=== PATIENT | female | born 1985 | race Caucasian/White ===

== ENCOUNTER 2020-04-26 09:09 | Emergency (ER) | payer OTHER, SELFPAY ==
[2019-04-25 08:34] VITALS: BMI 25.9
[2020-04-26 09:10] VITALS: BP 145/73; PULSE 89; RESP 16; TEMP 36.9; O2SAT 98; BMI 28.3
--- NOTE | 2020-04-26 09:22 | EKG12_ITS ---
Test Reason : CHEST PAIN Blood Pressure : / mmHG Vent. Rate : 076 BPM Atrial Rate : 076 BPM P-R Int : 162 ms QRS Dur : 076 ms QT Int : 352 ms P-R-T Axes : 014 045 046 degrees QTc Int : 396 ms Normal sinus rhythm Normal ECG Confirmed by ELHAM WELLS, HERIBERTO ([id number]), art editor MARILYN ROME ([id number]) on 05/02/2020 12:44:26 PM Referred By: DAT Confirmed By:HERIBERTO LIZARRAGA MD
--- NOTE | 2020-04-26 09:22 | RAD_ITS ---
STUDY: X-RAY CHEST REASON FOR EXAM: Female, 34 years old. Anterior chest pain since 04-21-20 after putting a cabinet together TECHNIQUE: PA and lateral views of the chest. COMPARISON: None. FINDINGS: The lungs are clear and expanded. There is no demonstrated pleural abnormality. Normal size heart. Normal mediastinum and lopez. Normal visualized pulmonary arteries. Normal visualized aortic arch and descending thoracic aorta. Normal visualized thoracic spine. Normal visualized ribs, clavicles, and shoulders. There is no demonstrated abnormality of the visualized soft tissue structures of the upper abdomen. RAD/Chest PA and Lateral IMPRESSION: Normal x-ray examination of the chest. Electronically Signed: Den Stanley MD at 9:52 EST , Service support ,
--- NOTE | 2020-04-26 09:30 | ED.DCSUM_ITS ---
History of Present Illness Chief Complaint: Chest Other Informant: Patient Onset: Days Context: Gradual Onset Timing: Intermittent Current Severity: Moderate Maximum Severity: Moderate Narrative: Patient is an otherwise healthy 34-year-old female who presents to the emergency department with midsternal chest pain. She states it began on . She states that she was bent over and putting together a table. She states that she has had the pain intermittently since then. She states is worse if she pushes on the area, bends, or twists. It does not radiate to her neck or arm. It is not made worse with exertion. She denies cough or shortness of breath. She denies any nausea or vomiting. She states that she is taken ibuprofen which has seemed to help. She has no history of coronary vascular disease. Prior similar symptoms: No Recent Illness/Hospitalization: No Past Medical History - Allergies and Home Meds Allergies/Adverse Reactions: Allergies No Known Allergies Allergy (Verified 04/25/19 08:32) Primary Care Physician: Yobani Morse III, MD [Primary Care Provider] - Prior records reviewed: Yes Past Medical History: None Surgical History: noncontributory Smoking Status: Former smoker Review of Systems General: Denies: Chills, Fever, Sweats Eyes: Denies: Visual changes - bilaterally, Diplopia ENT: Denies: Rhinorrhea, Sore throat Cardiovascular: Reports: Chest pain. Denies: Palpitations Respiratory: Denies: Dyspnea, Cough, Dyspnea on exertion Gastrointestinal: Denies: Abdominal pain, Nausea, Vomiting, Diarrhea, Melena, Hematochezia Genitourinary: Denies: Dysuria, Hematuria, Frequency Musculoskeletal: Denies: Back pain, Extremity Pain Skin: Denies: Rash, Wounds Neurological: Denies: Headache, Weakness, Numbness Physical Exam Vital Signs/Narrative: Vital Signs Temp Pulse Resp BP Pulse Ox 04/26/20 09:10 98.4 F 89 16 145/73 H 98 Inital Vital Signs reviewed: Yes General: Well nourished, Well developed, No Acute Distress Head: Normocephalic, Atraumatic Eyes: Perrl, EOMI ENT: Moist mucous membranes, No rhinorrhea Neck: Supple, Nontender Cardiovascular: Regular rate, Regular rhythm, No murmurs Respiratory: No distress, CTA bilaterally, Chest tenderness Abdomen: Soft, Nontender, Nondistended, Normal bowel sounds Back: Nontender, Normal Inspection Extremities: Nontender, No edema Skin: Normal color, No rash Neurological: Alert, Oriented x3, Cranial nerves II-XII grossly intact, Normal Strength, Normal Sensation Psychological: Normal affect, Normal Mood Diagnostic/Tx/Re-eval Chest X-Ray - ED: 2 View, Read by ED Physician, Normal, Heart, Lungs, Mediastin um, Bony Structures Clinical Impression(s) from Imaging Studies Chest X-Ray 04/26/20 09:22 IMPRESSION: Normal x-ray examination of the chest. Electronically Signed: Den Stanley MD at 9:52 EST , Service support , - Rhythm Strip Rhythm Strip: Sinus Rhythm Rate: 80 Ectopy: None - EKG Initial EKG Interpretation: Sinus Rhythm, No Acute Injury Pattern Prior: No Prior - Medical Decision Making The patient presents with reproducible anterior chest pain. It is worse with motion. She has no exertional symptoms. She is not hypoxic, tachypneic, or tachycardic. EKG was obtained. Was sinus rhythm without evidence of acute ischemia. Chest x-ray was also obtained. There is no cardiomegaly, infiltrate, or effusion. My suspicion is that this is muscular. I am going to treat the patient with anti-inflammatories. She will be discharged home. Impression 1. Chest wall pain ED Disposition - Plan for ED Patient: Instructions: ED Chest Wall Pain, Costochondritis Prescriptions: Naproxen [Naprosyn] 500 mg PO BID PRN #20 tab Prescription Printed Referrals: Yobani Morse III, MD [Primary Care Provider] -
== END 2020-04-26 10:08 | disposition home or self-care (01) ==
LOC: ED 10:01
PROVIDERS: Emergency Provider Emergency Medicine; PCP Family Medicine
DX: R07.89 Other chest pain (principal); Z87.891 Personal history of nicotine dependence
CPT/HCPCS: 71046; 93005; 99282

== ENCOUNTER → 2022-08-28 | Outpatient (CLI) | payer OTHER, SELFPAY ==
--- NOTE | 2022-08-28 07:20 | BI_ITS ---
MAMMOGRAPHY - BILATERAL SCREENING REASON FOR EXAM: Female, 36 years old. Routine annual screening examination. PERTINENT HISTORY: Non-contributory. TECHNIQUE: Digital bilateral breast josh (3D mammographic acquisition) in the CC and MLO projections. 2-D mediolateral oblique (MLO) and craniocaudad (CC) views of both breasts were obtained. CAD: Full Field Digital Mammography with Computer Added Detection was performed. COMPARISON: None. Baseline examination. FINDINGS: Breast Composition: Portions of the breasts are extremely dense, which lowers the sensitivity of mammography. Finding 1: There is an asymmetry in the right central breast, middle depth, approximately 7 cm posterior to the nipple and seen only on CC and 3-D CC views. Further assessment with spot compression and ultrasound as needed is recommended. Finding 2: There is an asymmetry in the right outer breast, middle depth, approximately 7 cm posterior to the nipple and seen only on CC and 3-D cc views. Further assessment with spot compression and ultrasound as needed is recommended. Findings 3: There is an asymmetry in the left slightly upper breast, anterior depth, approximately 2.0 cm posterior to the nipple and seen only on MLO and 3-D MLO views. Further assessment with spot compression and ultrasound as needed is recommended. No suspicious calcifications. No other significant finding. BI/SCRN MAMM (CAD)W/JOSH BILAT IMPRESSION: Further imaging evaluation recommended, as described above. (E) Recall Side: Both Breasts ASSESSMENT CATEGORY: BIRADS Category 0: Incomplete. Need additional imaging evaluation. A letter regarding these results will be sent to the patient by the facility within 30 days. Approximately 10% of breast cancers are not detected by mammography. A normal mammogram should not delay biopsy of a clinically suspicious abnormality. Electronically Signed: Dragan George MD at 8:10 EDT ,
== END | disposition home or self-care (01) ==
LOC: OPBI 07:18
PROVIDERS: PCP Family Medicine; Referring Provider Nurse Practitioner Women's Health; Visit Provider Nurse Practitioner Women's Health
DX: Z12.31 Encounter for screening mammogram for malignant neoplasm of breast (principal)
CPT/HCPCS: 77063; 77067

== ENCOUNTER → 2022-09-05 | Outpatient (CLI) | payer OTHER, SELFPAY ==
--- NOTE | 2022-09-05 08:46 | BI_ITS ---
MAMMOGRAPHY - BILATERAL DIAGNOSTIC REASON FOR EXAM: Female, 36 years old. Abnormal screening mammogram. TECHNIQUE: Compression spot views of both breasts were obtained. CAD: Full Field Digital Mammography with Computer Added Detection was performed. COMPARISON: Comparison is made with prior examination August 28, 2022. FINDINGS: Breast Composition: The breasts are heterogeneously dense, which may obscure small masses. There are no dominant masses or suspicious calcifications. No other significant abnormalities are identified. BI/DIAG MAMM W/CAD BILMARCOS IMPRESSION: Negative diagnostic mammogram. Yearly followup mammogram recommended. (A) ASSESSMENT CATEGORY: BIRADS Category 1: Negative. A letter regarding these results will be sent to the patient by the facility within 30 days. Approximately 10% of breast cancers are not detected by mammography. A normal mammogram should not delay biopsy of a clinically suspicious abnormality. Electronically Signed: Den Stanley MD at 10:12 EDT ,
== END | disposition home or self-care (01) ==
PROVIDERS: PCP Family Medicine; Referring Provider Nurse Practitioner Women's Health; Visit Provider Nurse Practitioner Women's Health
DX: R92.8 Other abnormal and inconclusive findings on diagnostic imaging of breast (principal)
CPT/HCPCS: 77066

== ENCOUNTER 2022-10-29 17:00 | Outpatient (RCR) | payer OTHER, SELFPAY ==
--- NOTE | 2022-08-31 12:38 | HP.PTEVAL_ITS ---
Patient's Visit Information JASON LIAO is a 36 year old F referred to Physical Therapy by Renate Sierra DO with a diagnosis of Neck pain. Date of Evaluation: 08/30/22 Physical Therapist: Sincere Ng, PT, ATC - Visit Plan Frequency: 1x/Week Duration: 2-4 Weeks Plan: Trialed c Tx this date 14#/7# 30/10 x 10 min. Assess benefit of Tx next visit. Consider adding DTR and mobs next Rx - Subjective Pt reports she has had R shoulder pain for approximately 3 months. Pt notes she has slept on her stomach with her head rotated to the left for the past 38 years. Pt reports she believes this may be what's causing her pain. Pt denies any R UE tingling or numbness. Pt has had no diagnostic tests at this time. Pt reports she has been in a lot of pain over the past 3 months constantly. Pt denies any prior Hx of neck injuries. 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 Pt reports she is not limited with her ADL's or IADL's at this time. Pt reports even though she is in pain, she always works through the pain. Pt reports she has a very hard time sleeping at night secondary to her pain. 1/10 pain at rest, 5/10 pain at worst - Pain neck pain Pain Intensity (Out of 10): 1 Pain Intensity Range: 5 - Objective Neuro: B UE sensation is WNL to light touch. B bicipital reflex= 2/3. Pal pation: Pt has sig muscle guarding throughout her cervical spine and upper trap regions. No obvious deformity. ROM: Pt is moderately limited with c/s retraction. All other ranges WNL. MMT: B UE's are grossly 5/5 throughout. Repeated movements: RPIS 10x3 NE. RRIS 10x3 NE. Special tests: Pos apley compression test - Balance/Special Test Scores Oswestry Neck Score: 6 - Goals Goal 1:: Decrease neck pain x 50% to aid with sleep Goal Time Frame: 2-4 Weeks Goal 2:: Increase c/s ROM to WNL in all planes to aid with driving Goal Time Frame: 2-4 Weeks Goal 3:: I with HEP Goal Time Frame: 2-4 Weeks - Rehabilitation Potential Physical Therapy Diagnosis: Pt has neck pain, limited ROM in c/s, and difficulty with sleep secondary to a postural derangement of c/s Rehabilitation Potential: Good - Anticipated Interventions Patient/Client Instruction: Educate patient on: Condition, Plan of Care For the Purpose of:: To improve self management Therapeutic Exercise to Include: Postural training, Scapular Strength/Stabilization For the Purpose of:: To decrease pain, To increase ROM, To improve muscle performance and motor function Thermo therapy (hot pack): Yes Intermittent cervical traction: Yes For the Purpose of:: To decrease pain, To increase ROM Thank you for the opportunity to evaluate your patient. For Medicare and Medicare HMO plans, please review the plan of care and approve it. It will need to be FAXED BACK to us at [phone] for Medicare purposes. For Medicare only, by signing this I certify the plan of care. Please let me know if there are questions or concerns regarding this plan of care. Physician Signature: Date:
--- NOTE | 2023-01-02 12:27 | HP.PT.NRP ---
Patient Information Patient Information: JASON LIAO was seen in my office for initial evaluation on 08/30/22. The following Plan of Care was established for this patient: POC Established Initial Frequency: 1x/Week Initial Duration: 2-4 Weeks Anticipated Interventions Patient/Client Instruction: Educate patient on: Condition and Plan of Care For the Purpose of:: To improve self management Therapeutic Exercise to Include: Postural training and Scapular Strength/Stabilization For the Purpose of:: To decrease pain, To increase ROM and To improve muscle performance and motor function Thermo therapy (hot pack): Yes Intermittent cervical traction: Yes For the Purpose of:: To decrease pain and To increase ROM Last Seen Last Seen: This patient was last seen in our office . Pertinent comments regarding their Physical therapy will appear below: Pt was treated for 3 PT visits for neck pain through the date of 10/29/22. Pt has not returned through todays date and is discontinued at this time. At this point I will be discontinuing this patient from physical therapy. I would be happy to see this patient again in the future if found appropriate by the physician. Thank you! Sincere Ng, PT, ATC Balance/Gait/Functional tests Balance/Special Test Scores Oswestry Neck Score: 6
== END 2022-10-29 19:00 | disposition home or self-care (01) ==
LOC: PT 17:00
PROVIDERS: PCP Family Medicine; Referring Provider Family Medicine; Visit Provider Family Medicine
DX: M54.2 Cervicalgia (principal)
CPT/HCPCS: 97012; 97140; 97161

== ENCOUNTER → 2022-11-21 | Outpatient (CLI) | payer OTHER, SELFPAY ==
[2022-11-21 17:57] LABS: Anion Gap 7 (5-15); BUN 14 mg/dL (7-18); BUN/Creat Ratio 21.3 RATIO (10-20); Calcium,Total 9.2 mg/dL (8.5-10.1); Chloride 107 mmol/L (98-107); Creatinine, Serum 0.66 mg/dL (0.55-1.02); EST Glomerular Filtration Rate 107 mL/min (>60); Est Glom Filt Rate - Afr Amer 129 mL/min (>60); Glucose 102 mg/dL (74-106); Potassium 4.3 mmol/L (3.5-5.1); Sodium Level 136 mmol/L (136-145); Thyroid Stim Hormone (TSH) < 0.01 uIU/mL (0.358-3.74)
== END | disposition home or self-care (01) ==
LOC: MFPLAB 15:23
PROVIDERS: Nurse Practitioner Family; PCP Family Medicine; Visit Provider Family Medicine
DX: E87.6 Hypokalemia (principal); F41.9 Anxiety disorder, unspecified
CPT/HCPCS: 36415; 80048; 84443

== ENCOUNTER → 2022-11-28 | Outpatient (CLI) | payer OTHER, SELFPAY ==
[2022-11-28 18:11] LABS: Free T3 9.9 pg/mL (2.18-3.98); T4 Free Direct 2.44 ng/dL (0.76-1.46)
[2022-12-12 13:07] LABS: Anti-Thyroglobulin AB 25.3 IU/mL (0.0-0.9); Thyroglobulin RIA 37 ng/mL (.)
== END | disposition home or self-care (01) ==
LOC: MTLAB 15:16
PROVIDERS: PCP Family Medicine; Referring Provider Nurse Practitioner Family; Visit Provider Nurse Practitioner Family
DX: E05.90 Thyrotoxicosis, unspecified without thyrotoxic crisis or storm (principal)
CPT/HCPCS: 84432; 84439; 84445; 84481; 86800

== ENCOUNTER 2022-12-21 18:28 | Emergency (ER) | payer OTHER, SELFPAY ==
[2022-12-21 18:28] VITALS: BP 140/76; PULSE 91; RESP 16; TEMP 35.6; O2SAT 99; BMI 23.2
[2022-12-21 18:49] LABS: Absolute Lymphocyte Count 0.99 X10^3/uL (0.83-4.51); Absolute Neutrophil Count 12.4 X10^3/uL (2.0-7.7); Basophil# 0.04 X10^3/uL; Basophil% 0.3 % (0-1); Hemoglobin 15.3 g/dL (12.0-15.0); Lymphocyte # 0.99 X10^3/ul (0.83-4.51); Lymphocyte % 7.2 % (19-41); Mean Corpuscular Hgb 28.1 pg (27.0-32.0); Mean Corpuscular Volume 82.7 fL (81-99); Mean Platelet Vol. 10.7 fl (6.2-12.0); Monocyte# 0.18 X10^3/uL; Monocyte% 1.3 % (0-10); NRBC Flagged by Analyzer 0 % (0-5); Neutrophil # 12.44 X10^3/uL (2.7-7.7); Neutrophil % 90.9 % (47-70); Platelet Count 278 K/mm3 (150-450); RBC Distribution Width CV 11.9 % (11.6-14.6); RBC Distribution Width SD 35.6 fl (35.1-43.9); Red Blood Count 5.44 M/mm3 (4.2-5.4); White Blood Count 13.7 K/mm3 (4.4-11.0)
[2022-12-21 19:04] LABS: AST(SGOT) 10 U/L (15-37); Alanine Aminotransfer ALT/SGPT 24 U/L (13-56); Albumin, Serum 4.1 g/dL (3.2-5.0); Alkaline Phosphatase 98 U/L (45-117); Anion Gap 8 (5-15); BUN 13 mg/dL (7-18); BUN/Creat Ratio 19.7 RATIO (10-20); Calcium,Total 9.6 mg/dL (8.5-10.1); Chloride 109 mmol/L (98-107); Creatinine, Serum 0.66 mg/dL (0.55-1.02); EST Glomerular Filtration Rate 106 mL/min (>60); Est Glom Filt Rate - Afr Amer 128 mL/min (>60); Estimated Creatinine Clearance 94.67 ml/min; Globulin 4.1 g/dL (2.2-4.2); Glucose 167 mg/dL (74-106); Potassium 4.3 mmol/L (3.5-5.1); Protein, Total 8.2 g/dL (6.4-8.2); Sodium Level 140 mmol/L (136-145)
[2022-12-21 20:30] LABS: Mucous, Urine 0 SEEN /hpf (<or=2+)
[2022-12-21 20:35] LABS: Color, Urine Yellow (Yellow); Glucose, Dipstick Normal (Normal); Leukocyte Esterase-Dipstick Negative /ul (Negative); Nitrite-Dipstick Negative (Negative); Occult Blood-Urine 25 /ul (Negative); Protein-Dipstick 30 mg/dl (Negative); Urine Bilirubin Dipstick Negative (Negative); Urine Clarity Sl. Cloudy (Clear); Urine Urobilinogen Normal (Normal)
[2022-12-21 20:38] LABS: Ketone-Dipstick 150 mg/dl (Negative)
[2022-12-21 20:42] LABS: Bacteria RARE /hpf (None Seen); Red Blood Cells-Urine 0-5 SEEN /hpf (0-5); Squamous Epithelial Cells - UA 5-10 SEEN /hpf (5-10); White Blood Cells 0-5 SEEN /hpf (0-5)
[2022-12-21 21:15] VITALS: BP 132/77; PULSE 69; RESP 14; O2SAT 98
--- NOTE | 2022-12-21 22:37 | EX.ED.DYSGE1 ---
HPI History of Present Illness Chief Complaint: Nausea/Vomiting/Diarrhea Informant: patient Narrative Narrative: Patient presents with nausea vomiting diarrhea. Patient states she started this earlier today. She did have some vertigo prior to this but she has vertigo not uncommonly. She is on meclizine for this. She is not really having vertigo now. She has no abdominal pain. No blood in the stool. She states the diarrhea is wet and frothy. No recent antibiotics. She did just start what sounded like Synthroid a couple days ago. But her med list is showing methimazole. She also has a history of problems with nausea and vomiting. She has Zofran at home but does not have the oral dissolving tablet and with the vomiting she could not take it. She has no fevers. No known sick contacts. [facility] Medical History Acute pharyngitis, unspecified Back pain delivery delivered Thyrotoxicosis due to Graves' disease Home Medications hydroxyzine HCl 25 mg tablet 25 mg PO TID PRN 12/20/22 [History Last Taken Unknown] meclizine 25 mg tablet 25 mg PO TID PRN 12/20/22 [History Last Taken Unknown] methimazole 10 mg tablet 10 mg PO DAILY #30 tabs 12/20/22 [Rx Last Taken Unknown] sertraline 50 mg tablet (Zoloft) 50 mg PO DAILY 12/20/22 [History Last Taken Unknown] ondansetron 4 mg disintegrating tablet 4 mg PO Q8H PRN PRN Nausea #10 tabs 12/21/22 [Rx Last Taken Unknown] promethazine 25 mg tablet 25 mg PO Q6H PRN PRN Nausea #10 TABLETS 12/21/22 [Rx Last Taken Unknown] Allergy/AdvReac Type Severity Reaction Status Date / Time No Known Allergies Allergy Verified 12/21/22 18:28 Social History Smoking Status: Former smoker alcohol intake: never substance use type: marijuana what type of physical activity do you participate in: walking ROS ROS ED ROS Narrative A complete review of systems was performed and is negative except as documented in the history of present illness. Some specific details below. Constitutional: No recent fevers or chills. EYE: No visual complaints or pain. No change in eye color. ENT: No difficulty swallowing. No swelling. No pain. Not having GERD symptoms CV: No chest pain or palpitations. Respiratory: No dyspnea. No hemoptysis. No difficulty taking breaths. GI: Please see history of present illness. : No frequency dysuria or hematuria. Musculoskeletal: No recent trauma. No pains. Skin: No rash. Nondiaphoretic. Neuro: No weakness or numbness. Endocrine: No polyuria or polydipsia. EXAM Physical Exam Narrative Exam Narrative: CONSTITUTIONAL: Patient is nontoxic in appearance. The patient looks comfortable. HEENT: No notable trauma. Mucous membranes do still look moist. No sinus tenderness. No indication of pain with swallowing. EYES: No conjunctival injection. No proptosis. No icterus. CARDIOVASCULAR: Regular rate. Regular rhythm. No notable murmur. No JVD. RESPIRATORY: No respiratory distress. Breathing is unlabored. No wheezes. No rhonchi. No rales. No pain with a deep breath. GASTROINTESTINAL: Not distended. Bowel sounds are normal. No tenderness. No guarding. No rebound. No palpable mass. No bruit. Overall very benign abdomen. GENITOURINARY: No tenderness over the bladder. No CVA tenderness. MUSCULOSKELETAL: Atraumatic. No peripheral edema. No cord. No tenderness along the deep venous system. No asymmetry. NEUROLOGICAL: Patient is alert and appropriate. No focal deficit noted. I did sit her up and back. There is no vertigo that developed. No nystagmus. SKIN: No noted rashes. No diaphoresis. PSYCHIATRIC: Patient is calm. Mood is appropriate. Const Vital Signs: 12/21/22 18:28 12/21/22 21:15 12/21/22 23:00 Temperature 96.0 F L Temperature Source Temporal Pulse Rate 91 69 68 Respiratory Rate 16 14 15 Blood Pressure 140/76 H 132/77 H Blood Pressure Mean 97 95 Pulse Ox 99 98 98 Oxygen Delivery Method Room Air Room Air Room Air MDM MDM MDM Narrative Medical decision making narrative: Patient CBC showed minimal nonspecific elevation of white count and slight increased hemoglobin. Platelets are normal. Patient's electrolytes show no marked abnormalities. She did have slight elevation in the glucose at 167 that will need to be followed. Patient's liver function test are normal. Patient's urine is not showing definitive evidence of infection and she has no symptoms of an infection. Patient is given IV fluids and Zofran here. She is feeling much better when I go back and checked her. She had some water and some ice chips. She is not nauseated. We had her sit up and turn left and right. She is not vertiginous at all. I will write for some Zofran ODT. I will also write for some Phenergan to give her options. She has meclizine at home which she uses as needed for vertigo. However, with the nausea vomiting and diarrhea I think this is likely more of a viral type illness. We discussed reasons to return that would include pain, fevers, recurrent vomiting, vertigo or any other concerns. Lab Data Attestation: I reviewed the patient's lab results. Labs: Laboratory Results - last 24 hr 12/21/22 12/21/22 18:40 20:15 WBC 13.7 H RBC 5.44 H Hgb 15.3 H Hct 45.0 MCV 82.7 MCH 28.1 MCHC 34.0 RDW Std Deviation 35.6 RDW Coeff of Nancy 11.9 Plt Count 278 MPV 10.7 Immature Gran % (Auto) 0.300 Neut % (Auto) 90.9 H Lymph % (Auto) 7.2 L [place] % (Auto) 1.3 Eos % (Auto) 0.0 Baso % (Auto) 0.3 Absolute Neuts (auto) 12.4 H Absolute Lymphs (auto) 0.99 Nucleated RBC % 0 Sodium 140 Potassium 4.3 Chloride 109 H Carbon Dioxide 23.0 Anion Gap 8 BUN 13 Creatinine 0.66 Estim Creat Clear Calc 94.67 Est GFR (MDRD) Af Amer 128 Est GFR (MDRD) Non-Af 106 BUN/Creatinine Ratio 19.7 Glucose 167 H Calcium 9.6 Total Bilirubin 0.50 AST 10 L ALT 24 Alkaline Phosphatase 98 Total Protein 8.2 Albumin 4.1 Globulin 4.1 Albumin/Globulin Ratio 1.0 Urine Color Yellow Urine Clarity Sl. Cloudy Urine pH 5.0 Ur Specific Golden 1.030 Urine Protein 30 H Urine Glucose (UA) Normal Urine Ketones 150 A* Urine Occult Blood 25 H Urine Nitrite Negative Urine Bilirubin Negative Urine Urobilinogen Normal Ur Leukocyte Esterase Negative Urine RBC 0-5 SEEN Urine WBC 0-5 SEEN Ur Squamous Epith Cells 5-10 SEEN Urine Bacteria RARE Urine Mucus 0 SEEN Discharge Plan Triage Chief Complaint: Nausea/Vomiting/Diarrhea ED Provider: Danielito Murrieta Dx/Rx/DC Orders Clinical Impression: Nausea vomiting and diarrhea, History of vertigo Instructions: ED Diet Vomiting Diarrhea Prescriptions: New promethazine [promethazine] 25 mg tablet 25 mg PO Q6H PRN PRN (Reason: Nausea) Qty: 10 0RF ondansetron [ondansetron] 4 mg tablet,disintegrating 4 mg PO Q8H PRN PRN (Reason: Nausea) Qty: 10 0RF No Action sertraline [Zoloft] 50 mg tablet 50 mg PO DAILY hydroxyzine HCl 25 mg tablet 25 mg PO TID PRN meclizine 25 mg tablet 25 mg PO TID PRN methimazole 10 mg tablet 10 mg PO DAILY Qty: 30 4RF Primary Care Provider: Renate Sierra Referrals: Renate Sierra, DO [Primary Care Provider] - 1-2 Days if not improving Disposition Disposition: Home, Self Care
[2022-12-21] MEDS: Ondansetron 4 MG/2 ML Vial IV (22:50)
[2022-12-21] MEDS: 0.9% Normal Saline (1000mL) 1,000 ML 999 ML IV (22:50)
[2022-12-21 23:00] VITALS: PULSE 68; RESP 15; O2SAT 98
[2022-12-21 23:54] VITALS: PULSE 67; RESP 15; O2SAT 98
== END 2022-12-22 00:30 | disposition home or self-care (01) ==
PROVIDERS: Emergency Provider Emergency Medicine; PCP Family Medicine; Visit Provider Emergency Medicine
DX: R11.2 Nausea with vomiting, unspecified (principal); F12.90 Cannabis use, unspecified, uncomplicated; Z87.891 Personal history of nicotine dependence; R19.7 Diarrhea, unspecified
CPT/HCPCS: 80053; 81001; 85025; 96361; 96374; 99283; J7030; J2405

== ENCOUNTER → 2023-01-10 | Outpatient (CLI) | payer OTHER, SELFPAY ==
[2023-01-10 18:59] LABS: Free T3 4.3 pg/mL (2.18-3.98); T4 Free Direct 1.28 ng/dL (0.76-1.46); Thyroid Stim Hormone (TSH) < 0.01 uIU/mL (0.358-3.74)
[2023-01-12 05:08] LABS: Thyroid Peroxidase AB 290 IU/mL (0-34)
== END | disposition home or self-care (01) ==
LOC: MTLAB 16:10
PROVIDERS: PCP Family Medicine; Referring Provider Internal Medicine Endocrinology, Diabetes & Metabolism; Visit Provider Internal Medicine Endocrinology, Diabetes & Metabolism
DX: E05.00 Thyrotoxicosis with diffuse goiter without thyrotoxic crisis or storm (principal)
CPT/HCPCS: 36415; 84439; 84443; 84481; 86376

== ENCOUNTER → 2023-02-12 | Outpatient (CLI) | payer OTHER, SELFPAY ==
[2023-02-12 18:15] LABS: Free T3 2.6 pg/mL (2.18-3.98); T4 Free Direct 0.79 ng/dL (0.76-1.46); Thyroid Stim Hormone (TSH) < 0.01 uIU/mL (0.358-3.74)
== END | disposition home or self-care (01) ==
LOC: MTLAB 16:29
PROVIDERS: PCP Family Medicine; Referring Provider Internal Medicine Endocrinology, Diabetes & Metabolism; Visit Provider Internal Medicine Endocrinology, Diabetes & Metabolism
DX: E05.00 Thyrotoxicosis with diffuse goiter without thyrotoxic crisis or storm (principal)
CPT/HCPCS: 36415; 84439; 84443; 84481

== ENCOUNTER → 2023-02-13 | Outpatient (CLI) | payer OTHER, SELFPAY ==
--- NOTE | 2023-02-13 09:57 | STE_ITS ---
Reason For Study: HIGH PULM ARTERILA PRESSURE Stress Results Protocol: Waylon Protocol Maximum Predicted HR: 181 bpm Target HR: 154 bpm % Maximum Predicted HR: 100 % DurationHeart Rate Stage (mm:ss) (bpm) BP BASELINE 70 130/80 STAGE 1 3:00 117 140/80 STAGE 2 3:00 136 142/82 STAGE 3 3:00 151 158/88 STAGE 4 1:31 181 / RECOVERY 99 122/82 Stress Duration: 10:31 mm:ss Maximum Stress HR: 181 bpm Baseline Echocardiogram Findings Left ventricular systolic function is lower limits of normal. The left ventricular ejection fraction is 50 %. Stress Echo Wall motion Data Resting WM Intermediate WM Stress WM Resting Wall Motion Wall Motion Stress Borderline LV systolic function. All segments Hyperkinetic. Ejection Fraction 70 %. EKG Data The baseline ECG displays normal sinus rhythm. Stress ECG with no ischemic changes. ECHO/Stress Test Echo w/o Contrast Interpretation Summary Resting left ventricular systolic function borderline with EF of 45 to 50%. Post stress, all LV wall segments hyperdynamic with no regional wall motion abn ormality. Poststress ejection fraction 70%. No ischemic ECG changes noted. Exercise stress echo negative for ischemia or angina. Ordering Physician: Ramona Fernández Referring Physician: Ramona Fernández Performed By: Monique Andersen RDCS, RVT
== END | disposition home or self-care (01) ==
LOC: CVS 09:56
PROVIDERS: PCP Family Medicine; Referring Provider Internal Medicine Cardiovascular Disease; Visit Provider Internal Medicine Cardiovascular Disease
DX: I27.21 Secondary pulmonary arterial hypertension (principal); R79.89 Other specified abnormal findings of blood chemistry; E05.90 Thyrotoxicosis, unspecified without thyrotoxic crisis or storm
CPT/HCPCS: 93017; 93350

== ENCOUNTER → 2023-04-19 | Outpatient (CLI) | payer OTHER, SELFPAY ==
[2023-04-19 18:24] LABS: Free T3 3.3 pg/mL (2.18-3.98); T4 Free Direct 1.06 ng/dL (0.76-1.46); Thyroid Stim Hormone (TSH) < 0.01 uIU/mL (0.358-3.74)
== END | disposition home or self-care (01) ==
LOC: MTLAB 16:21
PROVIDERS: PCP Family Medicine; Referring Provider Nurse Practitioner Family; Visit Provider Nurse Practitioner Family
DX: E05.00 Thyrotoxicosis with diffuse goiter without thyrotoxic crisis or storm (principal)
CPT/HCPCS: 36415; 84439; 84443; 84481

== ENCOUNTER → 2023-12-30 | Outpatient (CLI) | payer OTHER, SELFPAY ==
--- NOTE | 2023-12-30 09:28 | BI_ITS ---
MAMMOGRAPHY - BILATERAL SCREENING REASON FOR EXAM: Female, 38 years old. Routine annual screening examination. PERTINENT HISTORY: Mother with breast cancer. TECHNIQUE: Digital bilateral breast josh (3D mammographic acquisition) in the CC and MLO projections. 2-D mediolateral oblique (MLO) and craniocaudad (CC) views of both breasts were obtained. CAD: Full Field Digital Mammography with Computer Added Detection was performed. COMPARISON: Comparison is made with prior study September 05, 2022 and August 28, 2022. FINDINGS: Breast Composition: The breasts are heterogeneously dense, which may obscure small masses. There are no dominant masses or suspicious calcifications. No other significant abnormalities are identified. There has been no significant change since the prior study. BI/SCRN MAMM (CAD)W/JOSH BILAT IMPRESSION: Stable bilateral screening mammogram. Yearly follow-up mammogram recommended. (A) ASSESSMENT CATEGORY: BIRADS Category 1: Negative. A letter regarding these results will be sent to the patient by the facility within 30 days. Approximately 10% of breast cancers are not detected by mammography. A normal mammogram should not delay biopsy of a clinically suspicious abnormality. [id number] Electronically Signed: Den Stanley MD at 11:28 EDT ,
== END | disposition home or self-care (01) ==
PROVIDERS: PCP Family Medicine; Referring Provider Family Medicine; Visit Provider Family Medicine
DX: Z12.31 Encounter for screening mammogram for malignant neoplasm of breast (principal); Z80.3 Family history of malignant neoplasm of breast
CPT/HCPCS: 77063; 77067

== ENCOUNTER → 2024-01-13 | Outpatient (CLI) | payer OTHER, SELFPAY ==
[2024-01-13 18:37] LABS: Free T3 2.6 pg/mL (2.18-3.98); T4 Free Direct 0.82 ng/dL (0.76-1.46)
== END | disposition home or self-care (01) ==
LOC: MTLAB 16:33
PROVIDERS: PCP Family Medicine; Referring Provider Internal Medicine Endocrinology, Diabetes & Metabolism; Visit Provider Internal Medicine Endocrinology, Diabetes & Metabolism
DX: E05.00 Thyrotoxicosis with diffuse goiter without thyrotoxic crisis or storm (principal)
CPT/HCPCS: 36415; 84439; 84443; 84481

== ENCOUNTER → 2024-11-16 | Outpatient (CLI) | payer OTHER, SELFPAY ==
[2024-11-16 12:40] LABS: Free T3 6.5 pg/mL (2.18-3.98)
[2024-11-19 14:09] LABS: HPV APTIMA, High Risk Negative (Negative)
== END | disposition home or self-care (01) ==
PROVIDERS: PCP Family Medicine; Referring Provider Internal Medicine Endocrinology, Diabetes & Metabolism; Visit Provider Internal Medicine Endocrinology, Diabetes & Metabolism
DX: Z01.419 Encounter for gynecological examination (general) (routine) without abnormal findings (principal); E05.00 Thyrotoxicosis with diffuse goiter without thyrotoxic crisis or storm
CPT/HCPCS: 36415; 84439; 84443; 84481; 87624; 88175; G0145

== ENCOUNTER → 2024-12-30 | Outpatient (CLI) | payer OTHER, SELFPAY ==
--- NOTE | 2024-12-30 08:32 | BI_ITS ---
EXAM: SCRN MAMM (CAD)W/JOSH BILAT DATE: 12/30/2024 CLINICAL HISTORY: F, Age 39 y/o , SCREEN Mother with breast cancer. TECHNIQUE: Procedure Code: [id number] Modality: MG Procedure: SCRN MAMM (CAD)W/JOSH BILAT COMPARISON: Prior exam(s) dated December 30, 2023.. FINDINGS: TISSUE DENSITY: The breasts are heterogeneously dense, which may obscure small masses. Bilateral Breast Mammographic Findings: No significant masses, calcifications or other abnormalities are identified. No suspicious masses, areas of developing architectural distortion, or suspicious calcifications. There has been no significant interval change. BI/SCRN MAMM (CAD)W/JOSH BILAT IMPRESSION: Stable bilateral screening mammogram. OVERALL FINAL ASSESSMENT BI-RADS 1: NEGATIVE. RECOMMENDATION: Routine annual follow-up in 1 Year Additional Recommendation none A letter with findings and recommendations will be mailed to the patient. Reading Location: [place] [id number]
--- NOTE | 2024-12-30 10:33 | RAD_ITS ---
EXAM: XR Right Foot Complete, 3 or More Views CLINICAL INDICATION: PAIN IN RIGHT FOOT TECHNIQUE: Frontal, lateral and oblique views of the right foot. COMPARISON: No relevant prior studies available. FINDINGS: BONES/JOINTS: See below. SOFT TISSUES: Soft tissue swelling without acute fracture. RAD/Foot min 3 Views IMPRESSION: 1. Soft tissue swelling without acute fracture. 2. If symptoms persist, further evaluation with CT is recommended. Reading Location: [id number]
== END | disposition home or self-care (01) ==
LOC: OPBI 08:31
PROVIDERS: PCP Family Medicine; Referring Provider Family Medicine; Visit Provider Family Medicine
DX: Z12.31 Encounter for screening mammogram for malignant neoplasm of breast (principal); M79.671 Pain in right foot
CPT/HCPCS: 73630; 77063; 77067

== ENCOUNTER → 2025-02-22 | Outpatient (CLI) | payer OTHER, SELFPAY ==
[2025-02-22 18:14] LABS: Free T3 3.3 pg/mL (2.18-3.98)
== END | disposition home or self-care (01) ==
LOC: MTLAB 16:19
PROVIDERS: PCP Family Medicine; Referring Provider Internal Medicine Endocrinology, Diabetes & Metabolism; Visit Provider Internal Medicine Endocrinology, Diabetes & Metabolism
DX: E05.00 Thyrotoxicosis with diffuse goiter without thyrotoxic crisis or storm (principal)
CPT/HCPCS: 36415; 84439; 84443; 84481